=== PATIENT | female | born 2000 | race Caucasian/White ===

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

== ENCOUNTER 2018-06-27 15:40 | Emergency (ER) | payer MEDICAID, OTHER ==
--- NOTE | 2018-06-27 16:36 | ER Document Report ---
HPI - HPI Pain Level: 4 Notes: Patient is a 17-year-old female who presents to the ED complaining of urinary burning, urgency, frequency over the last week. Patient states that she is also sexually active and would like a test performed. She is not sure if she had a period last month or the month before. She is otherwise eating and drinking without any difficulties. She is having normal bowel movements. She has not had any vaginal discharge, odor, or bleeding. Denies any headache, fever, URI, sore throat, chest pain, palpitations, syncope, cough , shortness of breath, wheeze, dyspnea, abdominal pain, nausea/vomiting/diarrhea , urinary retention, dysuria, hematuria, back pain, loss of control of bowel or bladder, numbness/tingling, saddle anesthesia, muscle paralysis/weakness, or rash. - ROS Systems Reviewed and Negative: Yes All other systems reviewed and negative - CONSTITUTIONAL Constitutional: DENIES: Fever - URINARY Urinary: REPORTS: Urgency - x 1 wk, Frequency - x 1 wk - REPRODUCTIVE Reproductive: DENIES: :, Postmenopausal, Abnormal bleeding / discharge Past Medical History - Social History Smoking Status: Smoker,Current Status Unk Chew tobacco use (# tins/day): No Frequency of alcohol use: None Drug Abuse: None Family History: Reviewed & Not Pertinent Patient has suicidal ideation: No Patient has homicidal ideation: No Pulmonary Medical History: Reports: Hx Asthma, Hx Bronchitis, Hx Pneumonia Endocrine Medical History: Reports: Hx Hypothyroidism Renal/ Medical History: Denies: Hx Peritoneal Dialysis Psychiatric Medical History: Reports: Hx Attention Deficit Hyperactivity Disorder, Hx Depression Past Surgical History: Reports: Hx Myringotomy - Immunizations Immunizations up to date: Yes Hx Diphtheria, Pertussis, Tetanus Vaccination: Yes Vertical Provider Document - CONSTITUTIONAL Agree With Documented VS: Yes Notes: PHYSICAL EXAMINATION: GENERAL: Well-appearing, well-nourished and in no acute distress. LUNGS: Breath sounds clear to auscultation bilaterally and equal. No wheezes rales or rhonchi. HEART: Regular rate and rhythm without murmurs, rubs, gallops. ABDOMEN: Soft, nontender, nondistended abdomen. No guarding, no rebound. No masses appreciated. Normal bowel sounds present. No CVA tenderness bilaterally. Musculoskeletal: FROM to passive/active. Strength 5+/5. Extremities: No cyanosis, clubbing, or edema b/l. Peripheral pulses 2+. Capillary refill less than 3 seconds. NEUROLOGICAL: Normal speech, normal gait. PSYCH: Normal mood, normal affect. SKIN: Warm, Dry, normal turgor, no rashes or lesions noted. - INFECTION CONTROL TRAVEL OUTSIDE OF THE [place] IN LAST 30 DAYS: No Course - Re-evaluation Re-evalutation: 06/27/18 17:05 Patient is an afebrile, well-hydrated, 17-year-old female who presents to the ED with an acute UTI. Vitals are acceptable without any significant tachycardia , tachypnea, or hypoxia. PE is otherwise unremarkable. Patient does not want any STD or STI testing. See urinalysis results. Urine culture is pending. HCG negative. Patient is nontoxic-appearing and is tolerating p.o. without difficulties. Abdomen is otherwise soft and nontender. Low suspicion/risk for acute appendicitis, bowel obstruction, acute cholecystitis, acute cholangitis, perforated diverticulitis, incarcerated hernia, pancreatitis, perforated ulcer, peritonitis, sepsis, pelvic inflammatory disease, ectopic , tubo- ovarian abscess, ovarian torsion, or other systemic emergent condition at this time. Patient is aware that her condition can change from initial presentation and she needs to monitor symptoms closely and seek medical attention if any acute changes. Rx for keflex. Conservative measures otherwise for symptoms. Recheck with your PCM in 3-5 days. Return to the ED with any worsening/ concerning symptoms otherwise as reviewed in discharge. Pt aware that if she may need to perform routine HCG urine tests at home if her menstrual cycle remains absent. Patient is in agreement. Pt does not have any true allergy to PCN per mother ("just does not work for her"). - Vital Signs Vital signs: Temp Pulse Resp BP Pulse Ox 98.6 F 88 20 123/67 98 06/27/18 15:51 06/27/18 15:51 06/27/18 15:51 06/27/18 15:51 06/27/18 15:51 Discharge - Discharge Clinical Impression: Acute UTI (urinary tract infection) Condition: Stable Disposition: HOME, SELF-CARE Instructions: Cephalexin ([facility]), Urinary Tract Infection ([facility]) Additional Instructions: Push fluids (i.e. water, cranberry juice) Proper hygenic technique Keep the skin clean Tylenol/ibuprofen as needed Take medications as directed F/u with your PCM in 3-5 days for a recheck Consider consult with a Urologist for ongoing/worsening symptoms. Return to the ED with any worsening symptoms and/or development of fever, headache, chest pain, palpitations, syncope, shortness of breath, trouble breathing, abdominal pain, n/v/d, blood in stool/urine, loss of control of bowel /bladder, urinary retention, or other worsening symptoms that are concerning to you. Prescriptions: Cephalexin Monohydrate [Keflex 500 mg Capsule] 500 mg PO TID #21 capsule Referrals: ABDI WEIR MD [Primary Care Provider] - Follow up as needed
[2018-06-27 16:49] LABS: AMORPHOUS SEDIMENT,URINE TRACE /HPF; APPEARANCE,URINE TURBID; BILIRUBIN,URINE NEGATIVE (NEGATIVE); COLOR,URINE YELLOW; GLUCOSE, URINE NEGATIVE (NEGATIVE); KETONES,URINE NEGATIVE (NEGATIVE); LEUKOCYTE ESTERASE,URINE LARGE (NEGATIVE); NITRITE,URINE NEGATIVE (NEGATIVE); PROTEIN,URINE >=500 mg/dL (NEGATIVE); URINE SPECIFIC GRAVITY 1.016; UROBILINOGEN,URINE NEGATIVE mg/dL (<2.0)
[2018-06-27 17:01] VITALS: BP 122/57
== END 2018-06-27 17:12 | disposition home or self-care (01) ==
LOC: ER 15:40
DX: N39.0 Urinary tract infection, site not specified (principal); J45.909 Unspecified asthma, uncomplicated; Z32.02 Encounter for pregnancy test, result negative
CPT/HCPCS: 81001; 81025; 87086; 87088; 87186; 99283

== ENCOUNTER 2018-12-17 21:57 | Emergency (ER) | payer MEDICAID ==
[2018-12-17 22:06] VITALS: BP 146/80
[2018-12-18] MEDS ORDERED: AZITHROMYCIN 250 MG TABLET PO ONE (01:07)
[2018-12-18] MEDS ORDERED: IBUPROFEN 800 MG TABLET PO ONE (01:07)
--- NOTE | 2018-12-18 01:09 | ER Document Report ---
HPI - HPI Patient complains to provider of: Right ear pain Time Seen by Provider: 12/18/18 01:07 Onset: Other - 4 days Onset/Duration: Persistent Quality of pain: Achy Pain Level: 5 Context: Patient presents complaining of right ear pain for the past 4 days. Patient denies any fever or drainage from the ear. Patient denies any cough or cold symptoms. Associated Symptoms: Earache. denies: Fever, Nausea, Sore throat Exacerbated by: Denies Relieved by: Denies Similar symptoms previously: No Recently seen / treated by doctor: No - ROS ROS below otherwise negative: Yes Systems Reviewed and Negative: Yes All other systems reviewed and negative - CONSTITUTIONAL Constitutional: DENIES: Fever, Chills - EENT EENT: REPORTS: Ear Pain - RESPIRATORY Respiratory: DENIES: Trouble Breathing, Coughing - GASTROINTESTINAL Gastrointestinal: DENIES: Nausea, Patient vomiting - REPRODUCTIVE Reproductive: DENIES: : - DERM Skin Color: Normal Skin Problems: None Past Medical History - General Information source: Patient - Social History Smoking Status: Never Smoker Frequency of alcohol use: None Drug Abuse: None Occupation: None Lives with: Family Family History: Reviewed & Not Pertinent Patient has suicidal ideation: No Patient has homicidal ideation: No Pulmonary Medical History: Reports: Hx Asthma, Hx Bronchitis, Hx Pneumonia Endocrine Medical History: Reports: Hx Hypothyroidism Renal/ Medical History: Denies: Hx Peritoneal Dialysis Psychiatric Medical History: Reports: Hx Attention Deficit Hyperactivity Disorder, Hx Depression Past Surgical History: Reports: Hx Myringotomy - Immunizations Immunizations up to date: Yes Hx Diphtheria, Pertussis, Tetanus Vaccination: Yes Vertical Provider Document - CONSTITUTIONAL Agree With Documented VS: Yes Exam Limitations: No Limitations General Appearance: Other - Unkempt appearance, extremely malodorous - INFECTION CONTROL TRAVEL OUTSIDE OF THE [place] IN LAST 30 DAYS: No - HEENT HEENT: Atraumatic, Normocephalic, Tympanic Membrane Red - Right, Tympanic Membrane Bulging - Right. negative: Pharyngeal Exudate, Pharyngeal Tenderness Notes: After cerumen impaction cleared from right ear, right TM bulging with purulent effusion, no mastoid tenderness or swelling, no pain with movement of left ear - NECK Neck: Normal Inspection, Supple. negative: Lymphadenopathy-Left, Lymphadenopathy-Right - RESPIRATORY Respiratory: Breath Sounds Normal, No Respiratory Distress - CARDIOVASCULAR Cardiovascular: Regular Rate, Regular Rhythm - MUSCULOSKELETAL/EXTREMETIES Musculoskeletal/Extremeties: MAEW - NEURO Level of Consciousness: Awake, Alert, Appropriate Motor/Sensory: No Motor Deficit - DERM Integumentary: Warm, Dry, No Rash Course - Re-evaluation Re-evalutation: 12/18/18 01:08 No pain with movement of right helix, no mastoid tenderness or swelling. No concern for malignant otitis at this time. Patient with cleared cerumen impaction and acute otitis media. Discussed worsening signs or symptoms that patient should return immediately for. Will place the patient on azithromycin as she has an amoxicillin allergy. - Vital Signs Vital signs: Temp Pulse Resp BP Pulse Ox 99.4 F 110 H 18 146/80 H 94 12/17/18 22:04 12/17/18 22:04 12/17/18 22:04 12/17/18 22:04 12/17/18 22:04 Discharge - Discharge Clinical Impression: Cerumen impaction Qualifiers: Laterality: right Qualified Code(s): H61.21 - Impacted cerumen, right ear Otitis media Qualifiers: Otitis media type: unspecified Chronicity: acute Qualified Code(s): H66.90 - Otitis media, unspecified, unspecified ear Condition: Stable Disposition: HOME, SELF-CARE Instructions: Azithromycin ([facility]), Cerumen Impaction ([facility]), Otitis Media ([facility]) Additional Instructions: Return immediately for any new or worsening symptoms Followup with your primary care provider, call tomorrow to make a followup appointment Prescriptions: Azithromycin [Zithromax 250 mg Tablet] 250 mg PO DAILY 4 Days tablet Naproxen [Naprosyn 250 Nmg Tablet] 1 tab PO BID #14 tablet Referrals: ABDI WEIR MD [Primary Care Provider] - Follow up as needed
== END 2018-12-18 01:17 | disposition home or self-care (01) ==
LOC: ER 21:57
DX: H61.21 Impacted cerumen, right ear (principal); H66.90 Otitis media, unspecified, unspecified ear; E03.9 Hypothyroidism, unspecified
CPT/HCPCS: 99282; Q0144; J3490

== ENCOUNTER 2019-06-04 20:54 | Emergency (ER) | payer MEDICAID ==
--- NOTE | 2019-06-04 22:22 | ER Document Report ---
ED Medical Screen (RME) - General Chief Complaint: Pelvic Pain Stated Complaint: FLANK PAIN Time Seen by Provider: 06/04/19 22:19 Primary Care Provider: ABDI WEIR MD [Primary Care Provider] - Follow up as needed Notes: Patient is a 18-year-old female presents to the emergency department for dysuria and vaginal discharge for the last 5 days. Patient's denying any fevers, denies any nausea or vomiting. Patient is admitting to some minor suprapubic tenderness. Patient denies any history of kidney stones. Past medical history: Asthma Medications: None Allergies: Penicillin, sulfa Last menstrual cycle, patient is unsure. GENERAL: Alert, interacts well. No acute distress. ABDOMEN: Soft, slight suprapubic tenderness noted, no McBurney's point tenderness, no De La Cruz sign noted, no left lower abdominal pain, no left upper abdominal pain. Non-distended. Bowel sounds present in all 4 quadrants. No CVA tenderness noted bilaterally. I have greeted and performed a rapid initial assessment of this patient. A comprehensive ED assessment and evaluation of the patient, analysis of test results and completion of the medical decision making process will be conducted by additional ED providers. I have specifically instructed the patient or family members with the patient to immediately return to any nursing staff should anything change in the patient's condition or with their chief complaint. This medical record was dictated with voice recognizing software. There may be grammatical, syntax errors that are unintended. TRAVEL OUTSIDE OF THE [place] IN LAST 30 DAYS: No - Related Data Allergies/Adverse Reactions: amoxicillin trihydrate [From Augmentin] Allergy (Verified 12/16/16 20:32) banana [Banana] Allergy (Verified 12/16/16 20:32) Potassium Clavulanate * [From Augmentin] Allergy (Verified 12/16/16 20:32) Sulfa (Sulfonamide Antibiotics) Allergy (Verified 12/16/16 20:32) Past Medical History Pulmonary Medical History: Reports: Hx Asthma, Hx Bronchitis, Hx Pneumonia Endocrine Medical History: Reports: Hx Hypothyroidism Renal/ Medical History: Denies: Hx Peritoneal Dialysis Psychiatric Medical History: Reports: Hx Attention Deficit Hyperactivity Disorder, Hx Depression Past Surgical History: Reports: Hx Myringotomy - Immunizations Immunizations up to date: Yes Hx Diphtheria, Pertussis, Tetanus Vaccination: Yes Physical Exam - Vital signs Vitals: Temp Pulse Resp BP Pulse Ox 98.3 F 98 18 125/57 L 99 06/04/19 21:05 06/04/19 21:05 06/04/19 21:05 06/04/19 21:05 06/04/19 21:05 Course - Vital Signs Vital signs: Temp Pulse Resp BP Pulse Ox 98.3 F 98 18 125/57 L 99 06/04/19 21:05 06/04/19 21:05 06/04/19 21:05 06/04/19 21:05 06/04/19 21:05 Doctor's Discharge - Discharge Referrals: ABDI WEIR MD [Primary Care Provider] - Follow up as needed
[2019-06-04 23:56] LABS: APPEARANCE,URINE CLOUDY; BILIRUBIN,URINE NEGATIVE (NEGATIVE); COLOR,URINE AMBER; GLUCOSE, URINE NEGATIVE (NEGATIVE); KETONES,URINE NEGATIVE (NEGATIVE); LEUKOCYTE ESTERASE,URINE LARGE (NEGATIVE); NITRITE,URINE POSITIVE (NEGATIVE); PROTEIN,URINE 100 mg/dL (NEGATIVE); URINE SPECIFIC GRAVITY 1.025
[2019-06-05] MEDS ORDERED: AZITHROMYCIN 1 GM SUSP PACKET PO ONE (00:03)
[2019-06-05 00:13] VITALS: BP 118/41
[2019-06-05] MEDS ORDERED: LIDOCAINE 1% INJ-PF (10 MG/ML) 30 ML SDV INJ ONE (00:16)
[2019-06-05] MEDS ORDERED: CEFTRIAXONE INJ 1000 MG VIAL IM ONE (00:16)
--- NOTE | 2019-06-05 00:47 | ER Document Report ---
ED General - General Chief Complaint: Pelvic Pain Stated Complaint: FLANK PAIN Time Seen by Provider: 06/04/19 22:19 Primary Care Provider: ABDI WEIR MD [Primary Care Provider] - Follow up as needed Mode of Arrival: Ambulatory Information source: Patient TRAVEL OUTSIDE OF THE [place] IN LAST 30 DAYS: No - HPI Notes: Patient presents with flank pain greatest on the right. She also has some suprapubic pain and dysuria. This is been going on for 1 to 2 days. It is been constant. It is worse with urination and better when she does not urinate. Some nausea but no vomiting diarrhea. No fevers. She states she has known chronic medical conditions. She takes no daily medicines. No significant vaginal discharge or bleeding. She has noted some blood in her urine however. The pain is been moderate. It is a crampy sensation. - Related Data Allergies/Adverse Reactions: amoxicillin trihydrate [From Augmentin] Allergy (Verified 12/16/16 20:32) banana [Banana] Allergy (Verified 12/16/16 20:32) Potassium Clavulanate * [From Augmentin] Allergy (Verified 12/16/16 20:32) Sulfa (Sulfonamide Antibiotics) Allergy (Verified 12/16/16 20:32) Past Medical History - General Information source: Patient - Social History Smoking Status: Never Smoker Frequency of alcohol use: None Drug Abuse: None Family History: Reviewed & Not Pertinent Patient has suicidal ideation: No Patient has homicidal ideation: No Pulmonary Medical History: Reports: Hx Asthma, Hx Bronchitis, Hx Pneumonia Endocrine Medical History: Reports: Hx Hypothyroidism Renal/ Medical History: Denies: Hx Peritoneal Dialysis Psychiatric Medical History: Reports: Hx Attention Deficit Hyperactivity Disorder, Hx Depression Past Surgical History: Reports: Hx Myringotomy - Immunizations Immunizations up to date: Yes Hx Diphtheria, Pertussis, Tetanus Vaccination: Yes Review of Systems - Review of Systems Constitutional: denies: Chills, Fever EENT: denies: Nose congestion, Nose discharge Cardiovascular: denies: Chest pain, Palpitations Respiratory: denies: Cough, Short of breath -: Yes All other systems reviewed and negative Physical Exam - Vital signs Vitals: Temp Pulse Resp BP Pulse Ox 98.3 F 98 18 125/57 L 99 06/04/19 21:05 06/04/19 21:05 06/04/19 21:05 06/04/19 21:05 06/04/19 21:05 Interpretation: Normal - General General appearance: Appears well, Alert - HEENT Head: Normocephalic, Atraumatic Eyes: Normal Pupils: PERRL - Respiratory Respiratory status: No respiratory distress Chest status: Nontender Breath sounds: Normal Chest palpation: Normal - Cardiovascular Rhythm: Regular Heart sounds: Normal auscultation Murmur: No - Abdominal Inspection: Normal Distension: No distension Bowel sounds: Normal Tenderness: Nontender Organomegaly: No organomegaly - Back Back: Normal, CVA tenderness, Other - Patient has some mild right CVA tenderness to percussion - Extremities General upper extremity: Normal inspection, Nontender, Normal color, Normal ROM, Normal temperature General lower extremity: Normal inspection, Nontender, Normal color, Normal ROM, Normal temperature, Normal weight bearing. No: Migdalia's sign - Neurological Neuro grossly intact: Yes Cognition: Normal Orientation: AAOx4 [place] Coma Scale Eye Opening: Spontaneous [place] Coma Scale Verbal: Oriented [place] Coma Scale Motor: Obeys Commands [place] Coma Scale Total: 15 Speech: Normal Motor strength normal: LUE, RUE, LLE, RLE Sensory: Normal - Psychological Associated symptoms: Normal affect, Normal mood - Skin Skin Temperature: Warm Skin Moisture: Dry Skin Color: Normal Course - Re-evaluation Re-evalutation: 06/05/19 00:45 Patient has UTI by labs. She has no evidence of PID no significant abdominal pain or tenderness. Very mild flank pain. Vital signs are stable. I think natalie rutledge can be discharged home for outpatient treatment. - Vital Signs Vital signs: Temp Pulse Resp BP Pulse Ox 97.5 F 98 16 118/41 L 100 06/05/19 00:13 06/05/19 00:13 06/05/19 00:13 06/05/19 00:13 06/05/19 00:13 - Laboratory Laboratory results interpreted by me: 06/04/19 21:05 Urine Protein 100 H Urine Blood MODERATE H Urine Nitrite POSITIVE H Urine Urobilinogen 4.0 H Ur Leukocyte Esterase LARGE H 06/05/19 00:45 Laboratory 06/04/19 21:05 Urine Color CYNTHIA Urine Appearance CLOUDY Urine pH 6.0 Ur Specific [place] 1.025 Urine Protein 100 H Urine Glucose (UA) NEGATIVE Urine Ketones NEGATIVE Urine Blood MODERATE H Urine Nitrite POSITIVE H Urine Bilirubin NEGATIVE Urine Urobilinogen 4.0 H Ur Leukocyte Esterase LARGE H Urine WBC (Auto) >182 Urine RBC (Auto) 89 Urine WBC Clumps MANY Squamous Epi Cells Auto 11 Urine Mucus (Auto) FEW Urine Ascorbic Acid NEGATIVE Urine HCG, Qual NEGATIVE Discharge - Discharge Clinical Impression: Pyelonephritis Condition: Stable Disposition: HOME, SELF-CARE Instructions: Pyelonephritis ([facility]), Rocephin ([facility]), Doxycycline ([facility]) Additional Instructions: Please call your primary care physician as soon as possible to arrange follow-up Prescriptions: Doxycycline Hyclate 100 mg PO BID 10 Days #20 capsule Referrals: ABDI WEIR MD [Primary Care Provider] - Follow up as needed
== END 2019-06-05 01:12 | disposition home or self-care (01) ==
LOC: ER 20:54
DX: N12 Tubulo-interstitial nephritis, not specified as acute or chronic (principal); R10.2 Pelvic and perineal pain; R10.30 Lower abdominal pain, unspecified; R30.0 Dysuria; R11.0 Nausea; J45.909 Unspecified asthma, uncomplicated
CPT/HCPCS: 99283; 96374; 96375; 87086; 81025; 81001; J3490; Q0144; J0696; 87088; 87186

== ENCOUNTER 2019-07-01 19:55 | Emergency (ER) | payer MEDICAID ==
[2019-07-01] MEDS ORDERED: MAGNESIUM CITRATE 296 ML BOTTLE PO ONE (20:52)
--- NOTE | 2019-07-01 20:52 | ER Document Report ---
ED Medical Screen (RME) - General Chief Complaint: Constipation Stated Complaint: CONSTIPATION Time Seen by Provider: 07/01/19 20:46 Primary Care Provider: ABDI WEIR MD [Primary Care Provider] - Follow up as needed Mode of Arrival: Ambulatory Information source: Patient Notes: 18-year-old female presented to ED for constipation. Patient states that last bowel movement she had was Tuesday. She states she is been constipated for a little while. She states she feels like her rectum is swollen now from trying to push out the stool. She states she is not taking any laxatives or stool softeners. She states she has been trying to use prunes prune juice and apple juice. She states she has a Nexplanon in her left arm that she has had since she was 14 or 15. She states she does not know if she is but she thinks she may be because the control is out of date. I have greeted and performed a rapid initial assessment of this patient. A comprehensive ED assessment and evaluation of the patient, analysis of test results and completion of medical decision making process will be conducted by an additional ED providers. TRAVEL OUTSIDE OF THE [place] IN LAST 30 DAYS: No - Related Data Allergies/Adverse Reactions: amoxicillin trihydrate [From Augmentin] Allergy (Verified 12/16/16 20:32) banana [Banana] Allergy (Verified 12/16/16 20:32) Potassium Clavulanate * [From Augmentin] Allergy (Verified 12/16/16 20:32) Sulfa (Sulfonamide Antibiotics) Allergy (Verified 12/16/16 20:32) Past Medical History Pulmonary Medical History: Reports: Hx Asthma, Hx Bronchitis, Hx Pneumonia Endocrine Medical History: Reports: Hx Hypothyroidism Renal/ Medical History: Denies: Hx Peritoneal Dialysis Psychiatric Medical History: Reports: Hx Attention Deficit Hyperactivity Disorder, Hx Depression Past Surgical History: Reports: Hx Myringotomy - Immunizations Immunizations up to date: Yes Hx Diphtheria, Pertussis, Tetanus Vaccination: Yes Physical Exam - Vital signs Vitals: Pulse Resp BP Pulse Ox 87 18 121/87 H 98 07/01/19 19:59 07/01/19 19:59 07/01/19 19:59 07/01/19 19:59 Course - Vital Signs Vital signs: Temp Pulse Resp BP Pulse Ox 87 18 121/87 H 98 07/01/19 19:59 07/01/19 19:59 07/01/19 19:59 07/01/19 19:59 Doctor's Discharge - Discharge Referrals: ABDI WEIR MD [Primary Care Provider] - Follow up as needed
[2019-07-01 22:04] LABS: APPEARANCE,URINE SLIGHTLY-CLOUDY; BILIRUBIN,URINE NEGATIVE (NEGATIVE); COLOR,URINE YELLOW; GLUCOSE, URINE NEGATIVE (NEGATIVE); KETONES,URINE NEGATIVE (NEGATIVE); PROTEIN,URINE NEGATIVE (NEGATIVE); URINE SPECIFIC GRAVITY 1.025; UROBILINOGEN,URINE NEGATIVE mg/dL (<2.0)
--- NOTE | 2019-07-01 22:15 | ER Document Report ---
HPI - HPI Time Seen by Provider: 07/01/19 20:46 Pain Level: 2 Notes: Patient is a 18-year-old female with no significant past medical history presents complaining of constipation over the past 4 days. Patient states that she did pass a little bit of stool today, but her last good bowel movement was about 4 days ago. No melena or hematochezia. Patient states that she does have some abdominal cramping intermittently and does have some rectal pain when trying to have a bowel movement, but has not noticed any bulging or hemorrhoids. She has not tried any stool softeners, but has tried some juices. She has no other concerns or complaints. She is otherwise eating and drinking without difficulty. She is urinating normally. No other vaginal discharge, odor, or bleeding. Denies any headache, fever, neck pain, URI, sore throat, chest pain, palpitations, syncope, cough, shortness of breath, wheeze, dyspnea, nausea/vomiting/diarrhea, urinary retention, dysuria, hematuria, back pain, or rash. - ROS Systems Reviewed and Negative: Yes All other systems reviewed and negative - REPRODUCTIVE Reproductive: DENIES: : Past Medical History - General Information source: Patient - Social History Smoking Status: Never Smoker Chew tobacco use (# tins/day): No Frequency of alcohol use: None Drug Abuse: None Family History: Reviewed & Not Pertinent Patient has suicidal ideation: No Patient has homicidal ideation: No Pulmonary Medical History: Reports: Hx Asthma, Hx Bronchitis, Hx Pneumonia Endocrine Medical History: Reports: Hx Hypothyroidism Renal/ Medical History: Denies: Hx Peritoneal Dialysis Psychiatric Medical History: Reports: Hx Attention Deficit Hyperactivity Disorder, Hx Depression Past Surgical History: Reports: Hx Myringotomy - Immunizations Immunizations up to date: Yes Hx Diphtheria, Pertussis, Tetanus Vaccination: Yes Vertical Provider Document - CONSTITUTIONAL Agree With Documented VS: Yes Notes: PHYSICAL EXAMINATION: GENERAL: Well-appearing, well-nourished and in no acute distress. HEAD: Atraumatic, normocephalic. EYES: Pupils equal round and reactive to light, extraocular movements intact, sclera anicteric, conjunctiva are normal. ENT: Nares patent and without discharge. oropharynx clear without exudates. No tonsilar hypertrophy or erythema. Moist mucous membranes. NECK: Normal range of motion, supple without lymphadenopathy LUNGS: Breath sounds clear to auscultation bilaterally and equal. No wheezes rales or rhonchi. HEART: Regular rate and rhythm without murmurs, rubs, gallops. ABDOMEN: Soft, nontender, nondistended abdomen. No guarding, no rebound. No masses appreciated. Normal bowel sounds present. No CVA tenderness bilaterally. [place] negative. No tenderness to McBurney point. Musculoskeletal: FROM to passive/active. Strength 5+/5. Extremities: No cyanosis, clubbing, or edema b/l. Peripheral pulses 2+. Capillary refill less than 3 seconds. NEUROLOGICAL: Normal speech, normal gait. PSYCH: Normal mood, normal affect. SKIN: Warm, Dry, normal turgor, no rashes or lesions noted. - INFECTION CONTROL TRAVEL OUTSIDE OF THE [place] IN LAST 30 DAYS: No Course - Re-evaluation Re-evalutation: 07/01/19 22:31 Patient is an afebrile, well-hydrated, 18-year-old female who presents with constipation. Vitals are acceptable without significant tachycardia, tachypnea, or hypoxia. PE is otherwise unremarkable. Her abdomen is soft nontender throughout. Patient was given mag citrate upon arrival and since then has had a very large/"good" bowel movement. Patient states that she is feeling much better than she was. She is nontoxic-appearing and is able to tolerate p.o. without difficulty. UA and hCG negative. No further work-up warranted. Low suspicion/risk for acute appendicitis, bowel obstruction, acute cholecystitis, acute cholangitis, perforated diverticulitis, incarcerated hernia, pancreatitis, perforated ulcer, peritonitis, sepsis, pelvic inflammatory disease, ectopic , tubo-ovarian abscess, ovarian torsion, or other systemic emergent condition at this time. Patient is aware that her condition can change from initial presentation and she needs to monitor symptoms closely and seek medical attention if any acute changes. Conservative measures otherwise for symptoms. Recheck with your PCM in 3-5 days. Consider consult with a director of counterintelligence. Return to the ED with any worsening/concerning symptoms otherwise as reviewed in discharge. Patient is in agreement. - Vital Signs Vital signs: Temp Pulse Resp BP Pulse Ox 98.6 F 87 18 121/87 H 98 07/01/19 20:53 07/01/19 19:59 07/01/19 19:59 07/01/19 19:59 07/01/19 19:59 Discharge - Discharge Clinical Impression: Constipation Qualifiers: Constipation type: unspecified constipation type Qualified Code(s): K59.00 - Constipation, unspecified Condition: Stable Disposition: HOME, SELF-CARE Instructions: Constipation ([facility]) Additional Instructions: Maintain adequate fluid and food intake Increase fiber/water in diet tylenol if needed Monitor for any worsening symptoms Make sure you are staying hydrated enough to urinate and have normal BM's Recheck with your PCM in 3-5 days Consider consult with Gastroenterology for ongoing/worsening symptoms Return to the ED with any worsening symptoms and/or development of fever, headache, chest pain, palpitations, syncope, shortness of breath, trouble breathing, abdominal pain, n/v/d, blood in stool/urine, weakness, or other worsening symptoms that are concerning to you. Forms: Elevated Blood Pressure Referrals: ABDI WEIR MD [Primary Care Provider] - Follow up as needed RICO SELF MD [ACTIVE STAFF] - Follow up as needed
[2019-07-01 22:52] VITALS: BP 132/78
== END 2019-07-01 22:49 | disposition home or self-care (01) ==
LOC: ER 19:55
DX: K59.00 Constipation, unspecified (principal)
CPT/HCPCS: 81025; 81001; J3490; 99283

== ENCOUNTER 2019-07-16 19:38 | Emergency (ER) | payer MEDICAID ==
--- NOTE | 2019-07-16 20:01 | ER Document Report ---
ED Medical Screen (RME) - General Chief Complaint: Shortness Of Breath Stated Complaint: DIFFICULTY BREATHING Time Seen by Provider: 07/16/19 19:56 Primary Care Provider: ABDI WEIR MD [Primary Care Provider] - Follow up as needed Mode of Arrival: Ambulatory Information source: Patient Notes: 18-year-old female presented to ED for complaint of runny nose cough shortness of breath times a week. She has not had a fever that she knows of. She is alert oriented respirations regular nonlabored speaking in full sentences. She has a history of asthma and hypertension. She states she does not smoke drink or use any drugs. She denies any surgeries. Blood pressure is 120/78 patient is afebrile. Pulse is 85 and pulse ox is 100% I have greeted and performed a rapid initial assessment of this patient. A comprehensive ED assessment and evaluation of the patient, analysis of test results and completion of medical decision making process will be conducted by an additional ED providers. TRAVEL OUTSIDE OF THE [place] IN LAST 30 DAYS: No - Related Data Allergies/Adverse Reactions: amoxicillin trihydrate [From Augmentin] Allergy (Verified 12/16/16 20:32) banana [Banana] Allergy (Verified 12/16/16 20:32) Potassium Clavulanate * [From Augmentin] Allergy (Verified 12/16/16 20:32) Sulfa (Sulfonamide Antibiotics) Allergy (Verified 12/16/16 20:32) Past Medical History Pulmonary Medical History: Reports: Hx Asthma, Hx Bronchitis, Hx Pneumonia Endocrine Medical History: Reports: Hx Hypothyroidism Renal/ Medical History: Denies: Hx Peritoneal Dialysis Psychiatric Medical History: Reports: Hx Attention Deficit Hyperactivity Disorder, Hx Depression Past Surgical History: Reports: Hx Myringotomy - Immunizations Immunizations up to date: Yes Hx Diphtheria, Pertussis, Tetanus Vaccination: Yes Physical Exam - Vital signs Vitals: Temp Pulse Resp BP Pulse Ox 99.0 F 102 H 16 122/101 H 100 07/16/19 19:42 07/16/19 19:42 07/16/19 19:42 07/16/19 19:42 07/16/19 19:42 Course - Vital Signs Vital signs: Temp Pulse Resp BP Pulse Ox 99.0 F 102 H 16 122/101 H 100 07/16/19 19:42 07/16/19 19:42 07/16/19 19:42 07/16/19 19:42 07/16/19 19:42 Doctor's Discharge - Discharge Referrals: ABDI WEIR MD [Primary Care Provider] - Follow up as needed
[2019-07-16 20:03] VITALS: BP 120/78
--- NOTE | 2019-07-16 21:02 | RADIOLOGY REPORT (SQ) ---
EXAM DESCRIPTION: CLINICAL HISTORY: 18 years Female, cough COMPARISON: 30/12/2012. FINDINGS: Cardiomediastinal silhouette is not enlarged. No suspicious lung pleural bone abnormalities. IMPRESSION: No acute findings in chest.
== END 2019-07-17 | disposition left against medical advice (07) ==
LOC: ER 19:38
DX: J45.909 Unspecified asthma, uncomplicated (principal); R06.02 Shortness of breath; R05 Cough; R09.89 Other specified symptoms and signs involving the circulatory and respiratory systems; I10 Essential (primary) hypertension; Z87.01 Personal history of pneumonia (recurrent); Z88.0 Allergy status to penicillin; Z91.018 Allergy to other foods; Z88.2 Allergy status to sulfonamides; Z53.20 Procedure and treatment not carried out because of patient's decision for unspecified reasons
CPT/HCPCS: 71046; 99281